=== PATIENT | male | born 1990 | race Caucasian/White ===

== ENCOUNTER 2016-08-11 03:33 | Emergency (ER) | payer OTHER ==
[~2016-08-11 03:33] MED LIST: AMOXICILLIN PO; ATARAX PO; ELIMITE60 GM TOP; MEDROL PO
== END 2016-08-11 05:55 | disposition home or self-care (01) ==
LOC: CED 03:33
DX: F11.10 Opioid abuse, uncomplicated (principal); F15.10 Other stimulant abuse, uncomplicated; F32.9 Major depressive disorder, single episode, unspecified; F17.210 Nicotine dependence, cigarettes, uncomplicated
CPT/HCPCS: 36415; 96360; 99284

== ENCOUNTER 2016-09-08 21:05 | Emergency (ER) | payer OTHER ==
--- NOTE | ~2016-09-08 | CR72 ---
[facility] A Service of [facility] & [facility] RADIOLOGY TEXT RESULTS PATIENT: EROS BURRIS LOCATION: [facility] : [birth year] UNIT #: [id number] AGE: [address]: Malachi Valentine DO SEX: M ORDER DR: [id number] [facility] [address] [place], [place] [address] [id number] E MR#: [id number] Acc #: [id number] NAME: EROS BURRIS : 1990 SEX: M STUDY DATE/TIME: 09/08/2016 21:38 UNIT: [facility] ROOM: STUDY DESCRIPTION: CR Chest Single View Portable Attending Physician: Malachi Valentine D.O. Ordering Physician: Malachi Valentine D.O. Primary Care Physician: Primary Care Physician No MEDICAL IMAGING REPORT This report is preliminary unless electronic signature is present EXAM Portable chest HISTORY Left-sided chest pain, onset today. COMPARISON 04/09/2016 FINDINGS A single AP portable view of the chest shows both lungs to be clear. The heart is normal in size. The mediastinal contour is normal. No significant bone abnormalities are seen. IMPRESSION Normal portable chest. Dictated by... Jerilyn Escamilla M.D. THIS IS AN ELECTRONICALLY VERIFIED REPORT Jerilyn Escamilla M.D. at 09/09/2016 10:11 AM HUSAM/ronaldo TD: 09/09/2016 04:39 JOB #: [id number] MEDICAL IMAGING REPORT Page 1 of 1 COPY
[2016-09-08 22:31] LABS: ALKALINE PHOSPHATASE 91 U/L (32-92); ALT (SGPT) 101 U/L (10-40); AST (SGOT) 52 U/L (10-42); BILIRUBIN, DIRECT 0.2 mg/dL (0.0-0.2); BILIRUBIN,TOTAL 1.2 mg/dL (0.2-2.0); BLOOD UREA NITROGEN 11 mg/dL (9-23); CALCIUM SERUM 9.1 mg/dL (8.4-10.2); CARBON DIOXIDE 28 mmol/L (22-31); CHLORIDE 102 mmol/L (100-111); CREATININE SERUM 1.1 mg/dL (0.6-1.4); GLOM FILT RATE Estimated 92.2 mL/min (>60); GLUCOSE FASTING 88 mg/dL (70-110); POTASSIUM 3.3 mmol/L (3.5-5.1); PROTEIN TOTAL SERUM 8.1 g/dL (6.0-8.3); SALICYLATE <4.0 mg/dL; SODIUM 139 mmol/L (135-145)
[2016-09-08 22:32] LABS: ACETAMINOPHEN <10 ug/mL; ALCOHOL BLOOD <5 mg/dL (0)
== END 2016-09-08 23:10 | disposition home or self-care (01) ==
LOC: CED 21:05
PROVIDERS: Emergency Medicine
DX: T40.601A Poisoning by unspecified narcotics, accidental (unintentional), initial encounter (principal); Z79.899 Other long term (current) drug therapy
CPT/HCPCS: 36415; 71010; 80048; 80076; 96360; 99284; G0480

== ENCOUNTER 2016-09-29 17:12 | Emergency (ER) | payer OTHER ==
--- NOTE | ~2016-09-29 | EKG ---
PATIENT: EROS BURRIS UNIT #: [id number] Ventricular Rate: 114 BPM Atrial Rate: 114 BPM P-R Interval: 156 ms QRS Duration: 84 ms Q-T Interval: 322 ms QTC Calculation(Bezet): 443 ms P [place]: 64 degrees Calculated R [place]: 69 degrees Calculated T [place]: 57 degrees Diagnosis Line: Sinus tachycardia Diagnosis Line: Possible Left atrial enlargement Diagnosis Line: Borderline ECG Diagnosis Line: No previous ECGs available Diagnosis Line: Confirmed by MOIZ CABALLERO MD ([id number]) on Diagnosis Line: 09/30/2016 10:58:48 AM INTERPRETING MD: FEDERICO MORRISSEY
[2016-09-29] MEDS ORDERED: NO MEDICATIONS (17:22)
[2016-09-29 18:38] LABS: AMPHETAMINE POS (NEG); BARBITURATES NEG (NEG); BENZODIAZEPINES NEG (NEG); COCAINE NEG (NEG); MARIJUANA POS (NEG); OPIATES POS (NEG); TRICYCLIC ANTIDEPRESSANTS NEG (NEG); U METHADONE NEG (NEG)
[2016-09-29 18:43] LABS: BASOPHIL# 0.1 X10e3 (0-0.3); BASOPHIL% 0.3 % (0-2.5); DIFF IND NO; HEMATOCRIT 47.1 % (38.0-50.0); HEMOGLOBIN 15.7 gm/dL (13.0-16.0); LYMPHOCYTE# 1.6 X10e3 (1.0-3.5); LYMPHOCYTE% 8.8 % (17.0-45.0); MEAN CELL VOLUME 93.6 FL (83-96); MEAN CORPUSCULAR HEMOGLOBIN 31.1 PG (28-34); MEAN CORPUSCULAR HGB CONC 33.2 g/dL (30-36); MEAN PLATELET VOLUME 8.4 FL (6.5-11.5); MONOCYTE# 1.7 X10e3 (0-1.0); MONOCYTE% 9.3 % (3.0-12.0); NEUTROPHIL# 14.9 X10e3 (1.5-7.1); NEUTROPHIL% 81.6 % (40-75); PLATELET COUNT 262 X10e3 (140-420); RED BLOOD COUNT 5.03 X10e (3.90-5.60); RED CELL DISTRIBUTION WIDTH 14.1 % (11.0-15.5); WHITE BLOOD COUNT 18.3 X10e3 (4.0-10.5)
[2016-09-29 18:49] LABS: ALBUMIN SERUM 5.9 g/dL (3.5-5.0); BILIRUBIN, DIRECT 0.3 mg/dL (0.0-0.2); BILIRUBIN,INDIRECT 1.6 mg/dL (0.0-0.9); BILIRUBIN,TOTAL 1.9 mg/dL (0.2-2.0); CREATININE SERUM 1.1 mg/dL (0.6-1.4); GLOM FILT RATE Estimated 92.2 mL/min (>60); PROTEIN TOTAL SERUM 9.2 g/dL (6.0-8.3)
[2016-09-29 18:51] LABS: POTASSIUM 2.9 mmol/L (3.5-5.1)
== END 2016-09-29 20:10 | disposition left against medical advice (07) ==
LOC: SED 17:12
PROVIDERS: Nurse Practitioner Family
DX: F11.129 Opioid abuse with intoxication, unspecified (principal); F15.129 Other stimulant abuse with intoxication, unspecified; E86.0 Dehydration
CPT/HCPCS: 36415; 80048; 80076; 80307; 85025; 93005; 99284

== ENCOUNTER 2016-11-05 04:39 | Emergency (ER) | payer OTHER ==
[~2016-11-05] VITALS: Ht 177.8 cm; Wt 66.9 kg
--- NOTE | ~2016-11-05 | CR71 ---
[facility] A Service of [facility] & [facility] RADIOLOGY TEXT RESULTS PATIENT: EROS BURRIS LOCATION: [facility] : [birth year] UNIT #: [id number] AGE: [address]: Remy Davis SEX: M ORDER DR: [id number] [facility] [address] [place], [place] [address] [id number] E MR#: [id number] Acc #: [id number] NAME: EROS BURRIS : 1990 SEX: M STUDY DATE/TIME: 11/05/2016 5:22 UNIT: [facility] ROOM: STUDY DESCRIPTION: CR Chest Single View Attending Physician: Remy Davis P.A.-C. Ordering Physician: Remy Davis P.A.-C. Primary Care Physician: No Primary Care Physician MEDICAL IMAGING REPORT This report is preliminary unless electronic signature is present EXAM Chest x-ray, 11/05/2016. HISTORY 26-year-old male in the ED complaining of new onset left side chest pain tonight. TECHNIQUE AP portable chest x-ray. FINDINGS The examination is negative. The lungs are expanded and clear. No visible pulmonary infiltrate, pneumothorax or pleural effusion. Heart size normal. No change since 09/08/2016. IMPRESSION Negative chest. Dictated by... Yohannes Lowery M.D. THIS IS AN ELECTRONICALLY VERIFIED REPORT Yohannes Lowery M.D. at 11/05/2016 3:54 PM RGW/vane TD: 11/05/2016 12:56 JOB #: [id number] MEDICAL IMAGING REPORT Page 1 of 1 COPY
--- NOTE | ~2016-11-05 | EKG ---
PATIENT: EROS BURRIS UNIT #: [id number] Ventricular Rate: 97 BPM Atrial Rate: 97 BPM P-R Interval: 148 ms QRS Duration: 82 ms Q-T Interval: 338 ms QTC Calculation(Bezet): 429 ms P [place]: 57 degrees Calculated R [place]: 72 degrees Calculated T [place]: 61 degrees Diagnosis Line: Normal sinus rhythm Diagnosis Line: Minimal voltage criteria for LVH, may be normal Diagnosis Line: variant Diagnosis Line: Borderline ECG Diagnosis Line: No previous ECGs available Diagnosis Line: Confirmed by LYNETTE FIELDS MD ([id number]) on Diagnosis Line: 11/06/2016 4:47:50 PM INTERPRETING MD: GUDELIA
[~2016-11-05 04:39] MED LIST changes: +NO MEDICATIONS
[2016-11-05 05:32] LABS: BASOPHIL# 0.1 X10e3 (0-0.3); BASOPHIL% 0.5 % (0-2.5); DIFF IND YES; EOSINOPHIL% 0.1 % (0.0-7.0); HEMATOCRIT 47.9 % (38.0-50.0); HEMOGLOBIN 16.3 gm/dL (13.0-16.0); LYMPHOCYTE# 2.5 X10e3 (1.0-3.5); LYMPHOCYTE% 15.6 % (17.0-45.0); MEAN CELL VOLUME 92.2 FL (83-96); MEAN CORPUSCULAR HEMOGLOBIN 31.3 PG (28-34); MEAN CORPUSCULAR HGB CONC 33.9 g/dL (30-36); MEAN PLATELET VOLUME 8.2 FL (6.5-11.5); MONOCYTE# 1.2 X10e3 (0-1.0); MONOCYTE% 7.4 % (3.0-12.0); NEUTROPHIL# 12.2 X10e3 (1.5-7.1); NEUTROPHIL% 76.4 % (40-75); PLATELET COUNT 281 X10e3 (140-420); RED CELL DISTRIBUTION WIDTH 13.5 % (11.0-15.5)
[2016-11-05 05:58] LABS: POC - CKMB <1.0 ng/mL (0.0-7.9); POC - TROPONIN <0.05 ng/mL (<=0.05)
[2016-11-05 06:24] LABS: ALBUMIN SERUM 5.4 g/dL (3.5-5.0); ALKALINE PHOSPHATASE 80 U/L (32-92); ALT (SGPT) 109 U/L (10-40); AST (SGOT) 48 U/L (10-42); BILIRUBIN, DIRECT 0.3 mg/dL (0.0-0.2); BILIRUBIN,INDIRECT 0.9 mg/dL (0.0-0.9); BILIRUBIN,TOTAL 1.2 mg/dL (0.2-2.0); BLOOD UREA NITROGEN 10 mg/dL (9-23); BUN/CREATININE RATIO 9.09; CARBON DIOXIDE 24 mmol/L (22-31); CHLORIDE 102 mmol/L (100-111); CREATININE SERUM 1.1 mg/dL (0.6-1.4); GLOM FILT RATE Estimated 92.2 mL/min (>60); GLUCOSE FASTING 106 mg/dL (70-110); POTASSIUM 3.1 mmol/L (3.5-5.1); PROTEIN TOTAL SERUM 8.7 g/dL (6.0-8.3); SODIUM 139 mmol/L (135-145)
[2016-11-05 06:25] LABS: ALCOHOL BLOOD <5 mg/dL (0)
[2016-11-05 07:09] LABS: AMPHETAMINE POS (NEG); BARBITURATES NEG (NEG); BENZODIAZEPINES NEG (NEG); COCAINE NEG (NEG); MARIJUANA NEG (NEG); OPIATES NEG (NEG); TRICYCLIC ANTIDEPRESSANTS NEG (NEG); U METHADONE NEG (NEG)
[2016-11-05 07:12] LABS: PLATELET ESTIMATE NORMAL (NORMAL)
== END 2016-11-05 07:14 | disposition home or self-care (01) ==
LOC: CED 04:39
PROVIDERS: Physician Assistant
DX: F19.10 Other psychoactive substance abuse, uncomplicated (principal); F17.210 Nicotine dependence, cigarettes, uncomplicated
CPT/HCPCS: 36415; 71010; 80048; 80076; 80307; 82553; 84484; 85025; 93005; 96361; 96374; 99284; G0480; J2060

== ENCOUNTER 2016-11-19 00:24 | Emergency (ER) | payer OTHER ==
[~2016-11-19] VITALS: Ht 182.9 cm; Wt 68.0 kg
--- NOTE | ~2016-11-19 | EKG ---
PATIENT: EROS BURRIS UNIT #: [id number] Ventricular Rate: 111 BPM Atrial Rate: 111 BPM P-R Interval: 144 ms QRS Duration: 68 ms Q-T Interval: 326 ms QTC Calculation(Bezet): 443 ms P [place]: 45 degrees Calculated R [place]: 72 degrees Calculated T [place]: 53 degrees Diagnosis Line: Sinus tachycardia Diagnosis Line: Possible Left atrial enlargement Diagnosis Line: Borderline ECG Diagnosis Line: When compared with ECG of 19-NOV-2016 00:51, Diagnosis Line: (unconfirmed) Diagnosis Line: No significant change was found Diagnosis Line: Confirmed by LYNETTE FIELDS MD ([id number]) on Diagnosis Line: 11/20/2016 4:57:49 PM INTERPRETING : GUDELIA
[2016-11-19 03:36] LABS: AMPHETAMINE POS (NEG); BARBITURATES NEG (NEG); BENZODIAZEPINES NEG (NEG); COCAINE NEG (NEG); MARIJUANA POS (NEG); OPIATES POS (NEG); TRICYCLIC ANTIDEPRESSANTS NEG (NEG); U METHADONE NEG (NEG)
== END 2016-11-19 03:14 | disposition home or self-care (01) ==
LOC: CED 00:24
PROVIDERS: Nurse Practitioner Family
DX: T40.1X1A Poisoning by heroin, accidental (unintentional), initial encounter (principal); T43.621A Poisoning by amphetamines, accidental (unintentional), initial encounter; F10.129 Alcohol abuse with intoxication, unspecified; F17.210 Nicotine dependence, cigarettes, uncomplicated
CPT/HCPCS: 80307; 93005; 99284